=== PATIENT | male | born 2000 | race African-American/Black ===

== ENCOUNTER 2021-06-24 20:22 | Emergency (ER) | payer SELFPAY | END 2021-06-24 22:35 | disposition home or self-care (01) | LOC: ERS 20:22 | DX: S02.2XXA Fracture of nasal bones, initial encounter for closed fracture (principal); W21.05XA Struck by basketball, initial encounter | CPT/HCPCS: 70160 ==

== ENCOUNTER 2021-07-18 18:17 | Emergency (ER) | payer SELFPAY | END 2021-07-18 19:00 | disposition home or self-care (01) | LOC: ERS 18:17 | DX: Z00.00 Encounter for general adult medical examination without abnormal findings (principal) | CPT/HCPCS: 99281 ==